=== PATIENT | male | born 1995 | race Two or more races ===

== ENCOUNTER 2019-03-15 11:28 | Inpatient (IN) ==
[2019-03-15 12:30] LABS: Basophils # (auto) 0.01 K/uL (0-0.2); Basophils % (auto) 0.1 %; Eosinophils # (auto) 0.07 K/uL (0-0.5); Eosinophils % (auto) 0.9 %; Hematocrit (blood only) 44.7 % (42-52); Hemoglobin 15.4 g/dL (14.0-18.0); Immature Granulocytes # (auto) 0.01 K/uL (0.00-0.02); Immature Granulocytes % (auto) 0.1 %; Lymphocytes % (auto) 24.6 %; Mean Corpuscular Hemoglobin 31.5 pg (25-34); Mean Corpuscular Hgb Conc 34.5 g/dL (32-36); Mean Corpuscular Volume 91.4 fL (80-100); Mean Platelet Volume 10.6 fL (7.4-10.4); Monocytes # (auto) 0.47 K/uL (0.11-0.59); Monocytes % (auto) 5.8 %; Neutrophils # (auto) 5.56 K/uL (1.4-6.5); Neutrophils % (auto) 68.5 %; Platelet Count 254 K/uL (130-400); RDW Coefficient of Variation 12.3 % (11.5-14.5); RDW Standard Deviation 41.1 fL (36.4-46.3); Red Blood Count 4.89 M/uL (4.7-6.1); White Blood Count 8.12 K/uL (4.8-10.8)
[2019-03-15 12:45] LABS: Albumin Level 4.7 gm/dl (3.4-5.0); BUN Creatinine Ratio 17.8 (10-20); Calcium 9.6 mg/dl (8.5-10.1); Creatinine Clr Calc Pharmacy 134.4 ml/min; Est GFR (African American) 92.2; Est GFR (Non-African American) 79.5; Potassium 3.8 mmol/L (3.5-5.1)
[2019-03-15 12:55] LABS: Albumin Globulin Ratio 1.5 (0.9-2); Globulin 3.2 gm/dl (2.5-4.0); Thyroid Stimulating Hormone 1.12 uIu/ml (0.300-4.500); Total Protein 7.9 gm/dl (6.4-8.2)
[2019-03-15 13:07] LABS: Appearance Urine Clear (Clear); Bacteria Urine Automated Negative (Negative); Blood Urine Negative (Negative); Color Urine Dark Yellow; Glucose Urine UA Negative (Negative); Ketones Urine 2+ (Negative); Leukocyte Esterase Urine Negative (Negative); Nitrite Urine Negative (Negative); Protein Urine Trace (Negative); RBC Urine Automated 0-4 /hpf (0-4); Specific Gravity Urine 1.035 (1.000-1.030); Urobilinogen Urine Negative (Negative); pH Urine 5.5 (4.5-7.5)
[2019-03-15 13:11] LABS: Bilirubin Urine Negative (Negative); Ictotest Urine Negative (Negative)
[2019-03-15 13:25] LABS: Amphetamines+Metham, Urine Neg (Neg); Barbiturates, Urine Neg (Neg); Benzodiazepine, Urine Neg (Neg); Cocaine, Urine Neg (Neg); MDMA (Ecstacy), Urine Neg (Neg); Methadone, Urine Neg (Neg); Opiate, Urine Neg (Neg); Phencyclidine, Urine Neg (Neg)
[2019-03-15] MEDS ORDERED: LORazepam 1 MG TAB SL STA (13:51)
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
--- NOTE | 2019-03-15 15:11 | Emergency Department Note ---
ED Visit Note This patient was signed out to me by Dr. Hinds at shift change. At that point the patient been medically cleared and was being evaluated by our psychiatric case management team. They did discuss the case with [facility] our mental health team. [facility] is willing to take him and the patient was admitted voluntarily to [facility] for further inpatient treatment and evaluation from mental health standpoint. . : Depression Qualifiers: Depression Type: unspecified Qualified Code(s): F32.9 - Major depressive disorder, single episode, unspecified
[2019-03-15] MEDS: NICOTINE POLACRILEX 2 MG GUM MT PRN ×3 (16:08→21:35)
[2019-03-15] MEDS ORDERED: MAGNESIUM HYDROXIDE SUSP 30 ML UDC PO PRN (16:15)
[2019-03-15] MEDS ORDERED: ALUMINUM/MAGNESIUM SUSP 30 ML UDC PO PRN (16:15)
[2019-03-15] MEDS ORDERED: ACETAMINOPHEN 325 MG TAB PO PRN (16:15)
[2019-03-15] MEDS ORDERED: SODIUM CHLORIDE 0.65% NA SOLN 45 ML (OCEAN) PRN (16:15)
[2019-03-15] MEDS ORDERED: BISMUTH SUBSALICYLATE PER ML OMNICELL CHARGE PO PRN (16:15)
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
[2019-03-16] MEDS: NICOTINE POLACRILEX 2 MG GUM MT PRN (10:09)
[2019-03-17] MEDS: NICOTINE POLACRILEX 2 MG GUM MT PRN ×3 (07:50→14:11)
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
[2019-03-18 06:10] LABS: Marijuana Quant, GCMS Urine 2200 ng/mL (<5)
== END 2019-03-17 16:55 | disposition home or self-care (01) | DRG 881 ==
LOC: ED 11:28 → 3S 16:15